=== PATIENT | female | born 1970 | race Caucasian/White ===

== ENCOUNTER → 2017-04-08 | Outpatient (CLI) | payer OTHER | LOC: FIMAGING 10:02 | PROVIDERS: ATTEND Obstetrics & Gynecology | DX: N93.9 Abnormal uterine and vaginal bleeding, unspecified (principal); Z97.5 Presence of (intrauterine) contraceptive device ==

== ENCOUNTER → 2017-04-23 | Outpatient (CLI) | payer OTHER | LOC: FIMAGING 09:05 | PROVIDERS: ATTEND Obstetrics & Gynecology | DX: Z12.31 Encounter for screening mammogram for malignant neoplasm of breast (principal) | CPT/HCPCS: G0202 ==

== ENCOUNTER → 2017-05-02 | Outpatient (CLI) | payer OTHER | LOC: BRMIMAGING 09:29 | PROVIDERS: ATTEND Obstetrics & Gynecology | DX: R92.8 Other abnormal and inconclusive findings on diagnostic imaging of breast (principal) | CPT/HCPCS: 76641-PO ==

== ENCOUNTER → 2017-05-19 | Outpatient (CLI) | payer OTHER ==
[~2017-05-19] MED LIST: BUPIVACAINE 0.5% 10 ML SDV ONE; LIDOCAINE 1% 300 MG/30 ML SDV ONE
== END ==
LOC: FIMAGING 07:13
PROVIDERS: ATTEND Obstetrics & Gynecology
PROC: 0HBT3ZX Excision of Right Breast, Percutaneous Approach, Diagnostic (ICD-10-PCS; principal; 2017-05-19)
DX: D24.1 Benign neoplasm of right breast (principal)

== ENCOUNTER 2017-08-12 19:40 | Emergency (ER) | payer OTHER ==
[2017-08-12 19:54] VITALS: TEMP 97.2
[2017-08-12] MEDS ORDERED: TDAP ADULT 0.5 ML INJ (BOOSTRIX) IM ONE ×2 (20:34→21:47)
[2017-08-12] MEDS ORDERED: IBUPROFEN 600 MG TAB PO ONE (21:44)
[2017-08-12] MEDS ORDERED: CEPHALEXIN 500MG PREPACK#4 BTL TAKEHOME ONE (21:55)
--- NOTE | 2017-08-12 21:58 | EDPHY ---
H & P Time Seen by Provider: 08/12/17 20:26 HPI/ROS: CHIEF COMPLAINT: Right hand injury HISTORY OF PRESENT ILLNESS: 46-year-old female presents emergency department laceration to her right hand. The patient was using a soda stream and she went to loosen it and it exploded and cut her in her right palm. The incident happened just prior to arrival. She is right-hand dominant. Denies any other trauma or injury. Unsure if she has a retained foreign body. She is unsure of her last tetanus shot. She complains of throbbing pain in her right hand. ROS: Denies numbness or tingling in her fingers, pain in her right wrist. Past Medical/Surgical History: Orthopedic surgery Social History: Smoking Status: Never smoked Physical Exam: On examination patient has a 5 cm laceration between the webspace of her right thumb and index finger. There is a part of the laceration that extends deep into MCP joint. I do not appreciate any obvious tendon laceration. Normal sensation to light touch with normal 2 point discrimination. No palpable bony tenderness. She has full range of motion of her fingers although pain especially when she tries to move her right thumb. No active bleeding noted. Constitutional: Initial Vital Signs Temperature (C) 36.2 C 08/12/17 19:51 Heart Rate 83 08/12/17 19:51 Respiratory Rate 16 08/12/17 19:51 Blood Pressure 109/75 08/12/17 19:51 O2 Sat (%) 99 08/12/17 19:51 O2 Delivery Mode Room Air Allergies/Adverse Reactions: No Known Allergies Allergy (Unverified 03/09/13 08:31) Home Medications: Medication Instructions Recorded Cephalexin [Keflex] 500 mg PO QID #28 cap 08/12/17 MDM/Departure - MDM Imaging Results: Imaging Impressions Hand X-Ray 08/12/17 20:55 Impression: Soft tissue gas overlying the palm and thenar eminence compatible with laceration. No radiopaque foreign bodies in this area, but there is a small linear radiopaque density along the radial aspect of the fifth distal phalanx. Imaging: I viewed and interpreted images myself Procedures: Laceration repair. Verbal consent was obtained from the patient. The 5 cm laceration on the right hand was anesthetized using 1% lidocaine with epinephrine. The wound was irrigated with saline, draped and explored to its base with a gloved finger. There were no deep structures involved. No obvious tendon injury was identified. The wound was repaired with 4 0 Ethilon, 10 sutures. The wound repair was complex. The procedure was performed by myself. Medications Given: Discontinued Medications Cephalexin (Keflex 500 Mg Prepack#4) 1 btl TAKEHOME EDNOW ONE PRN Reason: Protocol Stop: 08/12/17 21:56 Last Admin: 08/12/17 22:12 Dose: 1 btl Ibuprofen (Motrin) 600 mg PO EDNOW ONE Stop: 08/12/17 21:45 Last Admin: 08/12/17 21:48 Dose: 600 mg ED Course/Re-evaluation: 46-year-old female presents with right hand injury. X-rays reveal no evidence of retained foreign body, however the patient does have gas noted diffusely in her right hand. I spoke with the on-call hand surgeon, Dr. Susan Kerns, who will see this patient in follow-up on , in 2 days. He recommended Keflex. He agreed with closure of the skin. See procedure note. Patient was placed on Keflex. She was given ibuprofen. Her tetanus shot was updated in the emergency department. - Depart Disposition: Home, Routine, Self-Care Clinical Impression: Laceration of right hand Qualifiers: Encounter type: initial encounter Foreign body presence: without foreign body Qualified Code(s): S61.411A - Laceration without foreign body of right hand, initial encounter Condition: Good Instructions: Cephalexin (By mouth), Care For Your Stitches (ED), Laceration ( ED), Acute Wounds (ED) Additional Instructions: Wound Care Follow-Up: Removal of sutures in 10 days. Suture removal is complimentary in uncomplicated cases. Infection or abnormal findings would require reevaluation by the MD. In that case, you may be billed. Ibuprofen 600mg every 8 hours for pain as directed. Keflex 500 mg 4 times daily for 1 week to prevent infection. Keep splint on until follow-up with orthopedic hand surgeon on , in 2 days. Your given a tetanus shot today in the emergency department. Please document this for your records. Prescriptions: Cephalexin [Keflex] 500 mg PO QID #28 cap Referrals: Susan Kerns MD [Medical Doctor] - 1-2 days without fail (Orthopedic hand surgeon on-call)
[2017-08-12 22:27] VITALS: BP 122/82; PULSE 84; RESP 18; O2SAT 97
== END 2017-08-12 22:27 | disposition home or self-care (01) ==
PROC: 0HQFXZZ Repair Right Hand Skin, External Approach (ICD-10-PCS; principal; 2017-08-12)
DX: S61.411A Laceration without foreign body of right hand, initial encounter (principal); W45.8XXA Other foreign body or object entering through skin, initial encounter